=== PATIENT | female | born 1940 | race Caucasian/White ===

== ENCOUNTER 2020-03-29 13:24 | Outpatient (CLI) | payer OTHER ==
[~2020-03-29 13:24] MED LIST: DESPEC-DM TABL1 EACH PO; LEVAQUIN750 MG PO; VITAMIN D32000 UNIT PO
== END 2020-03-29 13:26 | disposition home or self-care (01) ==
LOC: MAMO-SONO 13:24
PROVIDERS: ATTEND Internal Medicine Geriatric Medicine
DX: N60.02 Solitary cyst of left breast (principal); Z12.31 Encounter for screening mammogram for malignant neoplasm of breast; N64.4 Mastodynia; N60.11 Diffuse cystic mastopathy of right breast; N60.12 Diffuse cystic mastopathy of left breast

== ENCOUNTER 2020-04-01 11:21 | Outpatient (CLI) | payer OTHER | END 2020-04-01 11:37 | disposition home or self-care (01) | LOC: NUCLEAR 11:21 | PROVIDERS: ATTEND Internal Medicine Geriatric Medicine | DX: M81.0 Age-related osteoporosis without current pathological fracture (principal) ==

== ENCOUNTER 2020-06-15 12:22 | Outpatient (CLI) | payer OTHER | END 2020-06-15 12:28 | disposition home or self-care (01) | LOC: RAD 12:22 | PROVIDERS: ATTEND Internal Medicine Rheumatology | DX: M06.09 Rheumatoid arthritis without rheumatoid factor, multiple sites (principal) ==

== ENCOUNTER 2021-06-14 09:34 | Outpatient (CLI) | payer OTHER | END 2021-06-14 09:40 | disposition home or self-care (01) | LOC: LAB 09:34 | PROVIDERS: ATTEND Internal Medicine Geriatric Medicine | DX: E21.0 Primary hyperparathyroidism (principal) ==

== ENCOUNTER 2021-08-04 08:21 | Outpatient (CLI) | payer OTHER | END 2021-08-04 08:23 | disposition home or self-care (01) | LOC: SONOGRAMA 08:21 | PROVIDERS: ATTEND Internal Medicine Gastroenterology | DX: R10.10 Upper abdominal pain, unspecified (principal) ==

== ENCOUNTER 2022-10-31 15:14 | Emergency (ER) | payer OTHER ==
[~2022-10-31] VITALS: Ht 157.5 cm; Wt 68.9 kg
[2022-10-31] MEDS ORDERED: SIMVASTATIN5 MG (15:27)
== END 2022-10-31 18:23 | disposition home or self-care (01) ==
LOC: ER 15:14
DX: S52.121A Displaced fracture of head of right radius, initial encounter for closed fracture (principal); S42.451A Displaced fracture of lateral condyle of right humerus, initial encounter for closed fracture; W18.39XA Other fall on same level, initial encounter; Y93.89 Activity, other specified; Y92.018 Other place in single-family (private) house as the place of occurrence of the external cause; Y99.9 Unspecified external cause status
CPT/HCPCS: 29105; 73080; 96372; 99284; J1885